=== PATIENT | female | born 2000 | race Caucasian/White ===

== ENCOUNTER → 2020-01-21 11:43 | Outpatient (CLI) | payer OTHER, SELFPAY ==
--- NOTE | 2020-01-21 | DI.US.S_ITS ---
PROCEDURE: US OB >= 14 WEEKS FETUS INDICATIONS: 20 week Anatomy scan OUTSIDE/PRIOR DATING DATA: Last menstrual period (LMP): 09/01/2019. LMP-based estimated date of delivery (DIANNA): 06/07/2020 . First dating scan (date and location): 01/21/2020 . Estimated date of delivery (DIANNA) from first dating scan: 06/08/2020 . TECHNIQUE: Real-time scanning was performed of the fetus, with image documentation and biometric measurements. Endovaginal scanning: No COMPARISON: None. FINDINGS: General: A single living intrauterine gestation is present. Presentation: Vertex. Placenta: Placental position is anterior , without previa. Amniotic fluid index: 14.4 cm, normal range is 5-24 cm. heart rate: 144 beats per minute. Maternal cervical canal: 4.0 cm long. Normal lower limit is 2.5 cm. biometrics: Biparietal diameter: 20 weeks 4 days Head circumference: 20 weeks Abdominal circumference: 19 weeks 6 days Femur length: 20 weeks 1 day Estimated gestational age from initial scan: 20 weeks 1 Composite gestational age from present scan: 20 weeks 1 day Estimated weight and percentile: 330 g; 33rd percentile. Measurement variability for biometric dating: +/- 7 days from 14 weeks to 15 weeks 6 days gestation, +/- 10 days from 16 weeks to 21 weeks 6 days gestation, +/- 2 weeks from 22 weeks to 27 weeks 6 days gestation, +/- 3 weeks for 28 weeks gestation or later. weight reference: 4500 g or EFW >90/95% is considered macrosomia or large for gestational age. EFW <10% is small for gestational age. EFW 5% or less is considered intra-uterine growth restriction. Anatomic survey: Neuro: Ventricles are non-dilated at less than 10 mm. Cisterna magna is normal at 3-11 mm. Cerebellum is normal in size and morphology. Nuchal skin fold: Normal at less than 6 mm between 14-21 weeks gestational age. Face: Nose and lips, facial profile are normal. Spine: No evidence for spina bifida. Heart: 4-chambered heart is present, with normal ventricular outflow tracts. Diaphragm: Diaphragm is intact. Stomach: Left-sided stomach is present. Kidneys: No hydronephrosis. Normal is less than 5 mm in 2nd trimester, less than 7 mm in 3rd trimester. Cord: 3-vessel cord has orthotopic insertion. Bladder: Normal in size. Extremities: All 4 extremities identified. IMPRESSION: 1. Single living IUP with mean composite gestational age of 20 weeks 1 day corresponding to ultrasound DIANNA of 06/08/2020. 2. Normal anatomic survey. Dictated by: Harish Rosen [facility] Interpreted: Aden Gomes MD on 01/21/2020 at 14:42 Approved by: Aden Gomes M.D. on 01/21/2020 at 17:04
== END ==
PROVIDERS: Referring Provider Nurse Practitioner Obstetrics & Gynecology; Visit Provider Nurse Practitioner Obstetrics & Gynecology
DX: Z36.89 Encounter for other specified antenatal screening (principal); Z3A.20 20 weeks gestation of pregnancy
CPT/HCPCS: 76811

== ENCOUNTER → 2020-02-28 07:28 | Outpatient (CLI) | payer OTHER, MEDICAID, SELFPAY ==
[2020-02-28 10:12] LABS: Hematocrit 44.4 % (36-46); Hemoglobin 15.3 g/dL (12.0-16.0)
[2020-02-28 10:37] LABS: GTT (PREG) 1 Hour PP 50gm Dose 120 mg/dL (76-139)
[2020-02-28 16:47] LABS: Mean Corpuscular HGB Conc 34.4 % (30-36); Mean Corpuscular Hemoglobin 31.6 PG (26-34); Platelet Count 284 X10^3/uL (150-400); Red Blood Cell Count 4.83 X10^6/uL (4.0-5.2); Red Cell Distribution Width 14.3 % (11.6-14.8); White Blood Cell Count 16.8 X10^3/uL (4.5-11.0)
== END ==
PROVIDERS: Referring Provider Nurse Practitioner Obstetrics & Gynecology; Visit Provider Nurse Practitioner Obstetrics & Gynecology
DX: Z34.90 Encounter for supervision of normal pregnancy, unspecified, unspecified trimester (principal); Z13.1 Encounter for screening for diabetes mellitus; Z3A.26 26 weeks gestation of pregnancy
CPT/HCPCS: 36415; 82950; 85027

== ENCOUNTER → 2020-05-13 12:51 | Outpatient (CLI) | payer OTHER, MEDICAID, SELFPAY | PROVIDERS: Referring Provider Nurse Practitioner Obstetrics & Gynecology; Visit Provider Nurse Practitioner Obstetrics & Gynecology | DX: Z36.85 Encounter for antenatal screening for Streptococcus B (principal) | CPT/HCPCS: 87081 ==

== ENCOUNTER 2020-06-10 10:49 | Outpatient (CLI) | payer OTHER, MEDICAID, SELFPAY ==
--- NOTE | 2020-06-10 11:12 | PM.OBTRLD ---
Visit Information Visit Information Date of evaluation: 06/10/20 Primary OB Provider: Teresita Hawley On-call OB Provider: Teresita Hawley Reason for Evaluation: Yes other Comments/Additional reasons for admission: 20YO @ [id number] by LMP and early US presents for evaluation of elevated BP in clinic. +FM and mild, irregular ctx. No VB, LOF, JOHNSON, vision changes or RUQ pain. Uncomplicated PN care w/ CNM. Has post dates IOL scheduled for 06/16/20 @ 41wks. Vital Signs Vital Signs: BP 122/83, HR-74, T97.2F Temporal PFSH Medical History (Updated 06/10/20 @ 11:22 by Teresita Hawley CNM) Depression Surgical History (Updated 06/10/20 @ 11:19 by Teresita Hawley CNM) Hx of tonsillectomy Social History (Updated 06/10/20 @ 11:20 by Teresita Hawley CNM) marital status: unmarried,living together household members: significant other lives independently: Yes caregiver/support person: No Review of Systems Review of Systems ROS: Yes All systems reviewed with the patient and are negative except as otherwise documented Exam Vital Signs (past 8 hours): Serial BPs stopped after repeat BP of 120/80 Presentation: vertex Objective Labs Result Diagrams: 06/10/20 11:15 06/10/20 11:11 Evaluation Evaluation Baseline heart rate: 150 Variability: Moderate (11-25) monitor accelerations: Absent monitor decelerations: Absent Contraction Frequency (minutes): 8 Uterine Contraction Intensity: Mild Category of Tracing: Reactive Comments: CE in clinic 1.5/60%/-3, medium, posterior Diagnosis, Plan/Disposition Final Diagnosis (1) Elevated blood pressure reading without diagnosis of hypertension: Status: Acute Problem details: BP normal in triage Plan/Disposition Plan: Preeclampsia labs drawn to establish baseline. RNST. Reassurance of normal given. Patient to follow-up in clinic next week, as scheduled. OB Disposition: home
[2020-06-10 11:38] LABS: Add Manual Diff / Slide Review NO; Basophils Absolute Auto 0 /uL (0-100); Basophils Percent Auto 0.4 % (0-2); Eosinophils Absolute Auto 200 /uL (0-450); Eosinophils Percent Auto 1.8 % (2-4); Hematocrit 46.9 % (36-46); Hemoglobin 16.3 g/dL (12.0-16.0); Lymphocytes Absolute Auto 1500 /uL (1100-4500); Lymphocytes Percent Auto 14.3 % (25-40); Mean Corpuscular HGB Conc 34.8 % (30-36); Mean Corpuscular Hemoglobin 32.3 PG (26-34); Mean Corpuscular Volume 92.9 fL (80-100); Monocytes Absolute Auto 900 /uL (0-900); Monocytes Percent Auto 8.6 % (3-14); Neutrophils Absolute Auto 8100 /uL (1500-7000); Neutrophils Percent Auto 74.9 % (50-75); Platelet Count 204 X10^3/uL (150-400); Red Blood Cell Count 5.06 X10^6/uL (4.0-5.2); Red Cell Distribution Width 12.8 % (11.6-14.8); White Blood Cell Count 10.8 X10^3/uL (4.5-11.0)
[2020-06-10 12:00] LABS: Protein (Total) Urine Random 12 mg/dL (0-12)
[2020-06-10 12:01] LABS: Creatinine Urine Random 110.1 mg/dL; Protein (Total) Urine Random 12 mg/dL (0-12)
[2020-06-10 12:06] LABS: Aspartate Aminotransferase 35 IU/L (14-36); BUN Creatinine Ratio 21.4 (6-22); Blood Urea Nitrogen 9 mg/dL (7-17); Estimated Glomerular Filt Rate > 60.0 mL/min (>60)
== END 2020-06-10 11:20 | disposition home or self-care (01) ==
LOC: LABOR 10:56 → OB 06-12 08:14
PROVIDERS: Referring Provider Nurse Practitioner Obstetrics & Gynecology; Visit Provider Nurse Practitioner Obstetrics & Gynecology
DX: O48.0 Post-term pregnancy (principal); R03.0 Elevated blood-pressure reading, without diagnosis of hypertension; Z3A.40 40 weeks gestation of pregnancy
CPT/HCPCS: 59025; 82570; 84156; 84450; 84550; 85025; G0378; G0379

== ENCOUNTER 2020-06-16 07:01 | Inpatient (IN) | payer OTHER, MEDICAID, SELFPAY ==
--- NOTE | 2020-06-16 07:18 | PM.OBHP.1 ---
OB HPI Date/Time Date of admission: 06/16/20 Date Patient Seen: 06/16/20 Time Patient Seen: 07:00 History of Present Condition Chief complaint: Observation of Labor : 1 Para: 0 Estimated Date of Delivery: 06/09/20 Estimated Gestational Age (weeks): 41 Narrative: Celia Hall is a 20 year old female @ 41 wks by LMP and 12 wk US who presents for post dates IOL. Seen in clinic yesterday w/ IOL consent signed and Alas balloon placed. Alas balloon came out around 7pm. Contractions persisted through the night, but spaced out after 3am. +FM. No VB or LOF. Uncomplicated PN care w/ CNM. Indications Indication for induction OB: post dates History of Present care: good care, initiated at week # (12), number of visits (12) and pounds weight gain (38) Dating criteria: LMP confirmed by 1st trimester US Ultrasounds: normal mid trimester US Obstetrical complications: none Medical complications: none Preadmission Labs Blood type: O (+) positive -: Antibody screen: negative, GBS status: negative, HBsAG: negative, HIV: negative and RPR/VDLR: negative -: Chlamydia screen: not detected and Gonorrhea screen: not detected -: Rubella: immune HCT: 44.4 HCAB: negative 1 hr GTT: 120 Evaluation Evaluation Baseline heart rate: 135 Variability: Moderate (11-25) monitor accelerations: Present monitor decelerations: Absent Contraction Frequency (minutes): 4 Uterine Contraction Intensity: Mild Status: Category l Cervical dilation (cm): 4 Cervical effacement (%): 90 station: 0 PFSH Medical History Depression Surgical History Hx of tonsillectomy Social History marital status: unmarried,living together household members: significant other lives independently: Yes caregiver/support person: No Review of Systems Review of Systems ROS: Yes All systems reviewed with the patient and are negative except as otherwise documented Exam Vital Signs (past 8 hours): BP 125/78, HR 107bpm, T 36.1C Temporal Resp Effort & Inspection: normal respiratory effort Auscultation: clear to auscultation bilaterally Cardio Rate: regular rate Rhythm: regular rhythm Heart Sounds: S1 normal and S2 normal Uterus Location (Fundal Height): 41 Psych Appearance: grossly normal Affect: normal affect Assessment and Plan Assessment and Plan Assessment and Plan narrative: A: Term nullipara @ 41wks Early labor No indication for GBS prophylaxis Cat I FHR P: Admit, routine orders. Plan pitocin protocol #1. Encouraged balanced rest and activity in early labor. OB back-up/ notified of patient admit status and plan of care. Will reassess in 4 hours or sooner, PRN.
[2020-06-16 08:02] LABS: Add Manual Diff / Slide Review NO; Basophils Absolute Auto 100 /uL (0-100); Basophils Percent Auto 0.3 % (0-2); Eosinophils Absolute Auto 100 /uL (0-450); Eosinophils Percent Auto 0.5 % (2-4); Hematocrit 47.9 % (36-46); Hemoglobin 16.5 g/dL (12.0-16.0); Lymphocytes Absolute Auto 1500 /uL (1100-4500); Lymphocytes Percent Auto 8.4 % (25-40); Mean Corpuscular HGB Conc 34.5 % (30-36); Mean Corpuscular Hemoglobin 31.9 PG (26-34); Mean Corpuscular Volume 92.7 fL (80-100); Monocytes Absolute Auto 1200 /uL (0-900); Monocytes Percent Auto 6.7 % (3-14); Neutrophils Absolute Auto 15500 /uL (1500-7000); Neutrophils Percent Auto 84.1 % (50-75); Platelet Count 223 X10^3/uL (150-400); Red Blood Cell Count 5.17 X10^6/uL (4.0-5.2); Red Cell Distribution Width 12.6 % (11.6-14.8); White Blood Cell Count 18.4 X10^3/uL (4.5-11.0)
[2020-06-16 08:08] LABS: COVID19 -Nasal RAPID Negative (Negative)
[2020-06-16] MEDS: LACTATED RINGERS 1,000 ML 100 ML IV ×4 (08:41→21:52)
[2020-06-16] MEDS: OXYTOCIN PREMIX 30 UNIT/500 ML PLAST..BAG IV (08:41)
[2020-06-16] MEDS: ONDANSETRON 4 MG/2 ML INJ IV (09:59)
[2020-06-16] MEDS: FENT 2MCG/ML BUPIV 0.125% EPI 200 MCG/100 ML PLAST..BAG 8 MCG EPIDURAL (11:01)
[2020-06-16 11:35] VITALS: BP 125/78
--- NOTE | 2020-06-16 14:18 | PM.OBPNLAB ---
Date/Time Date Patient Seen: 06/16/20 Time Patient Seen: 11:00 Pain Control Pain control: epidural Comments: Pt now comfortable after epidural placement Pelvic Exam Dilation (cm): 4 Effacement (%): 90 station: 0 Amniotic membrane status: Intact Contractions Contractions on admission: irregular Monitor mode: External Pitocin rate (mU/min): 5 Contraction frequency (min): 3 Contraction duration (min): 1 Contraction pattern: Regular Contraction intensity: Moderate Status status: Category l Heart Rate Baseline: 135 Monitor Accelerations: Present Monitor Decelerations: Absent Monitor Variability: Moderate Assessment and Plan Assessment: induction ongoing Plan: continuous present management Comments: Continue pitocin titration to adequate contraction pattern. Will consider AROm if minimal change at next check. Reassess in 4 hours or sooner, PRN.
--- NOTE | 2020-06-16 14:22 | PM.OBPNLAB ---
Date/Time Date Patient Seen: 06/16/20 Time Patient Seen: 13:45 Pain Control Pain control: epidural Comments: CNM called by RN for recurrent late declerations. 500mL LR IVFB started and pitocin stopped via phone order prior to my arrival. Pt's BP currently 93/50, repeated to 84/53. Ephedrine 15mg IV given, per . Late decelrations resolved and cat I FHR returned. Pelvic Exam Dilation (cm): 5 Effacement (%): 90 station: 0 Amniotic membrane status: Intact Comments: CE and performed @ 1406 after resolution of late decelerations. Contractions Monitor mode: External Pitocin rate (mU/min): 0 Contraction frequency (min): 4 Contraction duration (min): 1 Contraction pattern: Regular Contraction intensity: Moderate Status status: Category ll Heart Rate Baseline: 135 Monitor Accelerations: Present Monitor Decelerations: Early and Late Monitor Variability: Moderate Comments: late decelrations now resolved and patient's BP now 114/71 Assessment and Plan Assessment: induction ongoing Comments: Restart pitocin, per protocol. Will continue to monitor BP closely. Reassess in 4 hours or sooner, PRN. aware of patient's progress, FHR tracing, and plan to continue IOL.
--- NOTE | 2020-06-16 18:34 | PM.OBPNLAB ---
Date/Time Date Patient Seen: 06/16/20 Time Patient Seen: 18:30 Pain Control Pain control: epidural Comments: VS: BP 120/68, HR 86bpm, T98.4F Temporal Pelvic Exam Dilation (cm): 6 Effacement (%): 90 station: 0 Amniotic membrane status: Intact Comments: minimal cervical change in 11 hours w/ adequate contraction pattern Contractions Contractions on admission: regular Monitor mode: External Pitocin rate (mU/min): 6 Contraction frequency (min): 2 Contraction duration (min): 1 Contraction pattern: Regular Contraction intensity: Moderate Status status: Category ll Heart Rate Baseline: 150 Monitor Accelerations: Absent Monitor Decelerations: Late Monitor Variability: Moderate Assessment and Plan Assessment: other (Arrest of active ophase labor) Plan: Comments: Minimal cervical change was noted on last exqam and IUPC was placed w/ verification of adequate contraction pattern. Recommend promary for arrest of active phase labor. Pt agrees and /OB back-up was consulted and OR crew and notified. Pitocin shut off and IUPC removed.
--- NOTE | 2020-06-16 19:21 | PM.PREOP ---
Pre-operative Note COVID-19 COVID-19 status: Negative Result date/Date tested (Pos, Neg/Pending): 06/16/20 Interval Note History & Physical reviewed/Exam performed by Physician: No Changes to H&P: No H&P completed within 30 days and has changed as indicated here:: H&P done by admitting plaster caster 06/16/20
[2020-06-16] MEDS: CEFAZOLIN 2 GM/100 ML FROZ.PIGGY IV (19:31)
--- NOTE | 2020-06-16 19:38 | SUR.OPER ---
Supine on Padded OR bed, head on pillow, safety belt at thigh, arms secured on padded arm boards at <90 degrees abduction. Bump under right buttock. Legs uncrossed with pillow under knees, gel pad to heels, tape over blanket to lower legs.
--- NOTE | 2020-06-16 19:56 | SUR.OPER ---
VIABLE FEMALE INFANT DELIVERED AT 1943. CORD BLOOD AND PLACENTA TO OB WITH RN.
[2020-06-16 20:21] VITALS: BP 127/83; PULSE 107; RESP 13; TEMP 37.3; O2SAT 100
[2020-06-16 20:26] VITALS: BP 111/68; PULSE 101; RESP 16; O2SAT 99
--- NOTE | 2020-06-16 20:29 | PM.GYNOP.1 ---
Operative Date/Time/Diagnoses Date of procedure: 06/16/20 Time of procedure: 20:29 Pre-op diagnosis: Forty-one weeks gestation Stage I arrest of labor Meconium-stained amniotic fluid Post-op diagnosis: same Procedure & Clinicians Procedure: Procedures Operation Date: 06/16/20 19:15 Actual Procedures Side Surgeon p Section Clementina Spangler MD Indications: Forty-one weeks gestation Stage I arrest of labor Meconium stained fluid Surgeon: Clementina Spangler Child Daycare Worker: Vashti Bustos Anesthesia Type: Epidural (With Duramorph) Operative Notes Findings: Live female infant in the direct occiput posterior presentation Transitional meconium Normal uterus, tubes, and ovaries Closure Type: primary Specimen(s): other (Cord bloods to lab, placenta to path) Applied: catheter (To continuous drainage) Estimated blood loss (mL): 800 Blood products transfused: none Procedure in detail: The patient was taken to the operating room where she was placed in the dorsal supine position with a leftward tilt. She was prepped and draped in the usual sterile fashion. A timeout was performed. After epidural analgesia was found to be adequate, a Pfannenstiel skin incision was made 2 fingerbreadths above the pubic symphysis and carried through to the underlying layer fascia. The fascia was nicked in the midline, and the incision extended bilaterally with the Gan scissors. The superior aspect of the fascial incision was grasped with a Harris clamps, elevated, and the underlying rectus muscles dissected off sharply and bluntly. Attention was then turned to the inferior aspect of this incision which in a similar fashion was grasped with a [place] clamps, elevated, and the underlying rectus muscles dissected off sharply and bluntly. The rectus muscles were in the midline. The peritoneum was identified, grasped between 2 hemostats, and entered sharply with the Metzenbaum scissors. This incision was extended superiorly and inferiorly with good visualization of the bladder. The bladder blade was inserted. The vesicouterine peritoneum was identified, grasped with the pickup, and entered sharply with the Metzenbaum scissors. This incision was extended bilaterally, and the bladder flap was created digitally. The bladder blade was reinserted. The lower uterine segment was incised in a transverse fashion with the scalpel. Upon entering the amniotic sac there was a large amount of transitional meconium. The 's head was delivered without difficulty. The nose and mouth were suctioned with bulb suction. The remainder of the body delivered without difficulty. The cord was double clamped and cut. The infant was handed off to waiting RN and RT. The placenta was delivered manually. The uterus was cleared of all clots and debris. The uterine incision was repaired with #1 chromic in a running interlocking fashion, and a second layer the same suture was used for an imbricating layer. Hemostasis was achieved. The tubes and ovaries were examined and were found to be normal. The gutters were cleared of all clots and debris. The bladder flap was reapproximated using 2-0 Vicryl in a running fashion. The parietal peritoneum was closed using 2-0 Vicryl in a running fashion. The fascia was reapproximated using 0 Vicryl in a running fashion. Subcutaneous layer was copiously irrigated with warm normal saline. Five simple interrupted sutures of 3-0 Vicryl were placed to reapproximate the subcutaneous layer. The skin was closed with 4-0 Biosyn in a subcuticular fashion. Steri-Strips were placed. An Aquacel dressing was placed. The uterus was expressed of a small amount of old blood. Sponge, lap, and instrument counts were correct x-2. The patient tolerated the procedure well, and was taken to PACU in stable condition. The orthotics prosthetics assistant in this case provided retraction upon entering the subcutaneous layer. Also during incision of the fascia. She incised the fascia on the contralateral side. She provided retraction while dissecting the fascia off the rectus muscles. She assisted in entering the peritoneum. She provided retraction while the bladder flap was created and the uterus was entered. She provided fundal pressure on delivery of the baby. She provided retraction while the uterus was closed in 2 layers and the bladder flap was closed. She provided retraction while the peritoneum was closed. She provided retraction while the subcutaneous layer was reapproximated. Complications: none Post-operative Condition: stable Disposition: PACU Plan for aftercare: To the center after recovery
[2020-06-16 20:31] VITALS: BP 121/78; PULSE 87; RESP 16; O2SAT 99
[2020-06-16] MEDS: OXYCODONE/ACETAMINOPHEN 5/325 TABLET 1 TAB PO (20:40)
[2020-06-16 20:41] VITALS: BP 123/80; PULSE 97; RESP 15; TEMP 37.3; O2SAT 99
--- NOTE | 2020-06-16 22:46 | SUR.PHASEI ---
Late entry: Pt c/o incisional pain, medicated with percocet after tolerated applesauce. Pt transported to room 3 in and left in stable condition.
[2020-06-17] MEDS: KETOROLAC 30 MG/ML VIAL IV ×3 (02:30→14:29)
[2020-06-17] MEDS: LANOLIN OINT 7 GM 1 APPLIC TOP (02:58)
[2020-06-17] MEDS: OXYCODONE IR 5 MG TABLET PO ×2 (03:00→20:20)
[2020-06-17 07:00] LABS: Hematocrit 39.9 % (36-46); Hemoglobin 13.7 g/dL (12.0-16.0)
[2020-06-17] MEDS: ACETAMINOPHEN 325 MG TABLET 650 MG PO ×3 (08:34→20:19)
[2020-06-17] MEDS: PRENATAL VIT,CALC/IRON/FOLIC 1 TABLET 1 TAB PO (08:34)
[2020-06-17] MEDS: DOCUSATE 250 MG CAPSULE PO (08:34)
--- NOTE | 2020-06-17 12:35 | PM.OBPN.1 ---
Subjective - OB Subjective Patient comments: no complaints, pain well controlled, tolerating diet and other (Empty bladder without the catheter) [place] baby status: doing well and nursing well [place] feeding status: breast and bottle feeding Date Patient Seen: 06/17/20 Time Patient Seen: 12:35 Interval history: 20-year-old 1 para 1 postop day # 1 status post primary low-transverse section for a stage I arrest of labor. Exam Vital Signs (past 8 hours): Oxygen Delivery Method Room Air Narrative Exam Narrative: Generally: Patient is sitting up in bed, nursing infant, no acute distress Lungs: Clear to auscultation bilaterally Cardiovascular: Regular rate and rhythm Fundus: Firm at U -1 Incision: Clean dry and intact with Aquacel dressing Extremities: Trace edema, negative [place] Objective Labs Result Diagrams: 06/17/20 06:24 Labs: Laboratory Results - last 24 hr 06/17/20 06:24 Hgb 13.7 Hct 39.9 Assessment & Plan Plan day: 1 plan OB: routine postop care Time Spent With Patient Time: Total time spent is greater than 50% in coordination of care (as documented) at patient's floor/unit and/or counseling patient: Time with patient: less than 15 minutes
[2020-06-17] MEDS: IBUPROFEN 600 MG TABLET PO (20:19)
[2020-06-17 21:21] VITALS: BP 130/76; PULSE 88; RESP 16; TEMP 37
[2020-06-18] MEDS: IBUPROFEN 600 MG TABLET PO ×2 (03:09→09:42)
[2020-06-18] MEDS: OXYCODONE IR 5 MG TABLET PO ×2 (03:09→07:20)
[2020-06-18] MEDS: LANOLIN OINT 7 GM 1 APPLIC TOP (03:10)
[2020-06-18] MEDS: ACETAMINOPHEN 325 MG TABLET 650 MG PO ×2 (03:10→09:41)
[2020-06-18] MEDS: DOCUSATE 250 MG CAPSULE PO (09:41)
--- NOTE | 2020-06-18 14:30 | P.DS_ITS ---
Discharge Providers Provider Date of admission: 06/16/20 07:01 Discharge Date: 06/18/20 Consults: 06/16/20 21:21 Consult to Research Neuropsychologist Routine Comment: Discharge provider: Clementina Spangler MD Summary Hospital Course Date Patient Seen: 06/18/20 Time Patient Seen: 09:20 Diagnoses: Forty-one weeks gestation Stage I arrest of labor Meconium-stained amniotic fluid Primary low-transverse section Hospital Course: Patient is a 20-year-old 1 para 1 postop day # 1 status post primary low-transverse section secondary to a stage I arrest of labor. Patient presented in active labor. She never progressed further than 5-6 cm, despite presenting at 4-5 cm. She received Pitocin augmentation and artificial rupture of membranes. She received an epidural for pain management. She underwent a primary low-transverse section due to stage I arrest of labor without complication. Her postoperative course was unremarkable. She is discharged home on postop day # 2 tolerating a diet, pain well controlled, voiding without the catheter, going well, and no significant bleeding. Peripartum Data Infant Delivery Method: Section Laceration Description: None Episiotomy description: None Procedures: Pitocin augmentation of labor Epidural analgesia Primary low-transverse section complications: none 1: Gender: Female Disposition of : home Status at Discharge Cognitive/behavioral status at discharge: oriented Functional status at discharge: independent ambulation Overall status at discharge: patient is progressing back to baseline Time Spent with Patient Time attestation: Total time spent providing and/or coordinating discharge services: Time spent: Less than 30 minutes Objective Labs Result Diagrams: 06/17/20 06:24 Exam Vital Signs (past 8 hours): Oxygen Delivery Method Room Air Discharge Plan Discharge Plan Patient Disposition: Home Provider Discharge Comment: Call with fever, chills, redness or drainage around the incision or bleeding vaginally more than a pad in an hour Ibuprofen 600 mg every 6 hours Tylenol 650 mg every 6 hours Push fluids Discharge orders & Medications Prescriptions: New oxycodone 5 mg tablet 5 mg PO Q4H PRN (Reason: pain) Qty: 20 RF: 0 Continued prenat.vits,prudence,[id number] Tablet 1 tab PO DAILY RF: 0 Follow up/Referrals: Clementina Spangler MD [Physician] - 1 Week (My office will call to schedule) Diet/Activity/Treatments Diet: Regular Activity: No heavy lifting Skin/Wound/Dressing Care Report to your healthcare provider any signs of infection, such as:: chills, fever, increased pain, unusual drainage and unusual redness Dressing: Do not remove Visit Report/Discharge Packet Instructions: DI for , DI for Prescription Opioid Use
== END 2020-06-18 11:13 | disposition home or self-care (01) | DRG 788 ==
PROVIDERS: Obstetrics & Gynecology; Admitting Provider Nurse Practitioner Obstetrics & Gynecology; Referring Provider Nurse Practitioner Obstetrics & Gynecology; Visit Provider Nurse Practitioner Obstetrics & Gynecology
PROC: 10D00Z1 Extraction of Products of Conception, Low, Open Approach (ICD-10-PCS; CPT 59514; principal; 2020-06-16 19:15)
DX: O48.0 Post-term pregnancy (principal); Z3A.41 41 weeks gestation of pregnancy; Z37.0 Single live birth; O77.0 Labor and delivery complicated by meconium in amniotic fluid; O62.1 Secondary uterine inertia; Z20.822 Contact with and (suspected) exposure to COVID-19
CPT/HCPCS: 01967; 01968; 36415; 59050; 59514; 85014; 85018; 85025; 86850; 86900; 86901; 87635; C9803; G0379; J0690; J1885; J2250; J2274; J2405; J2590